=== PATIENT | female | born 1980 | race Hispanic/Latino ===

== ENCOUNTER 2018-04-13 10:51 | Emergency (ER) | payer BC ==
[2018-04-13 10:54] VITALS: TEMP 98.3; O2SAT 100; BMI 21.6
--- NOTE | 2018-04-13 11:51 | ED PDOC ---
Syncope/Near Syncope/Dizziness Time Seen by Provider: 04/13/18 11:36 Chief Complaint (Nursing): Trauma Chief Complaint (Provider): syncope, forehead laceration History Per: Patient Additional Complaint(s): 37-year-old female with no past medical history presents to emergency department for evaluation status post syncopal episode. 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 Patient lost consciousness and sustained abrasion to middle forehead. Patient also has additional abrasion to nasal bridge. She denies any history of similar symptoms. No associated chest pain, shortness of breath or dyspnea on exertion. Patient is not sure of last tetanus shot. PMD: none Past Medical History Reviewed: Historical Data, Nursing Documentation, Vital Signs Vital Signs: Last Vital Signs Temp 98.3 F 04/13/18 10:54 Pulse 56 L 04/13/18 10:54 Resp 20 04/13/18 10:54 BP 134/84 04/13/18 10:54 Pulse Ox 100 04/13/18 10:54 - Medical History PMH: No Chronic Diseases - Surgical History Surgical History: Tonsillectomy - Family History Family History: States: No Known Family Hx - Living Arrangements Living Arrangements: With Family - Social History Current smoker - smoking cessation education provided: No Alcohol: < 2 Drinks/Day Drugs: Denies - Immunization History Hx Tetanus Toxoid Vaccination: No (not sure) - Allergies Allergies/Adverse Reactions: Allergies Allergy/AdvReac Type Severity Reaction Status Date / Time Penicillins Allergy RASH Verified 04/13/18 11:18 Sulfa (Sulfonamide Allergy RASH Verified 04/13/18 11:19 Antibiotics) Review of Systems ROS Statement: Except As Marked, All Systems Reviewed And Found Negative Cardiovascular: Negative for: Chest Pain Gastrointestinal: Negative for: Nausea, Vomiting Skin: Positive for: Other (facial abrasion) Neurological: Positive for: Other (syncope, head injury with LOC) Physical Exam - Reviewed Nursing Documentation Reviewed: Yes Vital Signs Reviewed: Yes - Physical Exam Appears: Positive for: Well, Non-toxic, No Acute Distress Skin: Negative for: Rash Eye Exam: Positive for: Normal appearance ENT: Positive for: Other (abrasion to nasla bridge, no active bleeding, superficial laceration to mid frontal scalp, no active bleeding, minimal surrounding STS) Cardiovascular/Chest: Positive for: Regular Rate, Rhythm Respiratory: Positive for: Normal Breath Sounds. Negative for: Wheezing, Respiratory Distress Extremity: Positive for: Normal ROM Neurologic/Psych: Positive for: Alert, Oriented, Gait (steady). Negative for: Aphasia, Facial Droop - Laboratory Results Result Diagrams: 04/13/18 12:14 04/13/18 12:14 Urine POC: Negative - ECG Interpretation Of ECG: Sinus bradycardia 49 bpm, no other acute finding, reviewed by PA and ED attending O2 Sat by Pulse Oximetry: 100 Pulse Ox Interpretation: Normal - Other Rad CT head X-Ray: Read By Radiologist X-Ray Interpretation: normal head CT, no acute finding Medical Decision Making Medical Decision Makin37 year old with female with syncopal episode Plan: CT head EKG CBC CMP Trop IVF PO tylenol Adacel IM Procedure Note: Under sterile conditions laceration to mid frontal scalp was cleansed with normal saline and Betadine, Dermabond was used to approximate wound edges, good wound approximation was achieved, patient tolerated procedure well without any complications. Patient made aware of all diagnostic testing results. All questions answered. Wound care instructions given. Advised follow-up with primary care doctor or return to ED any time if acutely worse. Disposition - Clinical Impression Clinical Impression: Vasovagal syncope, Forehead laceration, Requires a booster tetanus - Patient ED Disposition Is Patient to be Admitted: No Counseled Patient/Family Regarding: Studies Performed, Diagnosis, Need For Followup - Disposition Referrals: [facility] [Outside] Disposition: Routine/Home Disposition Time: 13:33 Condition: STABLE Additional Instructions: Keep wound clean and dry. Allow excess glue to flake off on its own. This process should take 1-2 weeks. After this avoid scar formation by applying sunscreen daily. You may also use [id number] scar cream called Mederma. Vitamin E serum may also help. Expect some bruising and swelling to affected area. Take tylenol or ibuprofen as needed for pain. Follow-up with primary doctor or return to emergency room any time for acutely worsening symptoms. Instructions: Laceration Repair With Glue (DC), Diphtheria and Tetanus Toxoids , and Acellular Pertussis Vaccine, Vasovagal Response (DC), Syncope (Fainting) ( DC) Forms: [employer] ([place]) Results - Lab Results Lab Results: 04/13/18 04/13/18 12:14 12:14 WBC 9.4 RBC 4.32 Hgb 14.1 Hct 40.6 MCV 94.1 MCH 32.7 H MCHC 34.7 RDW 12.5 Plt Count 203 Sodium 139 Potassium 4.7 Chloride 103 Carbon Dioxide 23 Anion Gap 18 BUN 18 H Creatinine 0.8 Est GFR ( Amer) > 60 Est GFR (Non-Af Amer) > 60 Random Glucose 105 Calcium 9.2 Total Bilirubin 0.7 AST 24 ALT 35 Alkaline Phosphatase 57 Troponin I < 0.0120 Total Protein 8.3 H Albumin 4.4 Globulin 3.9 Albumin/Globulin Ratio 1.1
[2018-04-13] MEDS ORDERED: Tdap Vaccine 0.5 ml Vial (10-64 yrs) IM ONE ×2 (11:53→12:20)
[2018-04-13] MEDS ORDERED: Sodium Chloride 0.9% 1,000 ML IV STA (11:53)
[2018-04-13 12:18] LABS: HEMOGLOBIN 14.1 g/dL (12.0-16.0); MEAN CELL VOLUME 94.1 fl (81.0-99.0); MEAN CORPUSCULAR HEMOGLOBIN 32.7 pg (27.0-31.0); MEAN CORPUSCULAR HGB CONC 34.7 g/dL (33.0-37.0); RBC 4.32 Mil/uL (3.80-5.20); RED CELL DISTRIBUTION WIDTH 12.5 % (11.5-14.5); WHITE BLOOD COUNT 9.4 K/uL (4.8-10.8)
[2018-04-13 12:30] LABS: ALB/GLOB RATIO 1.1 (1.0-2.1); ALBUMIN 4.4 g/dL (3.5-5.0); ALT/SGPT 35 U/L (9-52); AST/SGOT 24 U/L (14-36); BLOOD UREA NITROGEN 18 mg/dl (7-17); CALCIUM 9.2 mg/dL (8.4-10.2); GFR AFRICAN-AMERICAN > 60; GFR NON-AFRICAN AMERICAN > 60
--- NOTE | 2018-04-13 12:57 | CT ---
PROCEDURE: CT HEAD WITHOUT CONTRAST. HISTORY: trauma, syncope, LOC COMPARISON: None available. TECHNIQUE: Axial computed tomography images were obtained through the head/brain without intravenous contrast. Radiation dose: Total exam DLP = 821 mGy-cm. This CT exam was performed using one or more of the following dose reduction techniques: Automated exposure control, adjustment of the mA and/or kV according to patient size, and/or use of iterative reconstruction technique. FINDINGS: HEMORRHAGE: No intracranial hemorrhage. BRAIN: No mass effect or edema. No atrophy or chronic microvascular ischemic changes. VENTRICLES: Unremarkable. No hydrocephalus. CALVARIUM: Unremarkable. PARANASAL SINUSES: Unremarkable as visualized. No significant inflammatory changes. MASTOID AIR CELLS: Unremarkable as visualized. No inflammatory changes. OTHER FINDINGS: None. IMPRESSION: Normal CT of the Head.
[2018-04-13 13:50] VITALS: BP 130/80; PULSE 62; RESP 18
--- NOTE | 2018-04-14 09:16 | CARD ---
APPROVED REPORT EKG Measurement Heart [id number] <Conclusion> Sinus bradycardia Otherwise normal ECG
== END 2018-04-13 13:40 | disposition home or self-care (01) ==
LOC: H.ER 10:51
DX: R55 Syncope and collapse (principal); S01.81XA Laceration without foreign body of other part of head, initial encounter; W19.XXXA Unspecified fall, initial encounter; Y92.89 Other specified places as the place of occurrence of the external cause; Z88.0 Allergy status to penicillin
CPT/HCPCS: 70450; 80053; 81025; 84484; 85027; 90471; 90715; 93005; 99284; J7040